=== PATIENT | male | born 1980 | race Caucasian/White ===

== ENCOUNTER 2017-06-03 07:39 | Emergency (ER) | payer MEDICAID ==
[~2017-06-03] VITALS: Ht 172.7 cm; Wt 100.0 kg
[~2017-06-03 07:39] MED LIST: CEPHALEXIN500 M2 PO; ED FLEXERI6 TAB/BOTT PO; ED NORCO 56 UDTAB/BO PO; FLEXERIL10 MG PO; GOOD NEIGHBOR200 M3 PO; IBU600 MG PO; NORCO 325 MG-51 TAB PO; PERCOCET 325 MG1 TA4 PO; TORADOL 10MG TA10 MG PO
[2017-06-03 08:10] LABS: EOS # 0.1 (0.04-0.40); EOS % 1.8 % (0.0-4.0); HEMATOCRIT 43.9 % (42.0-52.0); HEMOGLOBIN 15.4 g/dL (13.5-18.0); LYMPH# 1.3 (1.50-4.00); MEAN CELL VOLUME 85 fl (78-100); MEAN CORPUSCULAR HEMOGLOBIN 30 pg (27-31); MEAN CORPUSCULAR HGB CONC 35 g/dL (33-37); MEAN PLATELET VOLUME 9.3 fl (7.4-10.4); MONO # 0.7 (0.20-0.80); PLATELET COUNT 174 K/mm3 (130-400); RED BLOOD COUNT 5.17 M/mm3 (4.20-5.60); WHITE BLOOD COUNT 6.1 K/mm3 (4.8-10.8)
[2017-06-03 08:20] LABS: URINE APPEARANCE CLEAR; URINE BILIRUBIN NEGATIVE (NEGATIVE); URINE BLOOD 50 ery/uL (NEGATIVE); URINE COLOR YELLOW; URINE GLUCOSE NEGATIVE (NEGATIVE); URINE KETONE NEGATIVE (NEGATIVE); URINE LEUKOCYTE ESTERASE NEGATIVE (NEGATIVE); URINE NITRATE NEGATIVE (NEGATIVE); URINE PROTEIN(semi-quant) NEGATIVE (NEGATIVE); URINE UROBILINOGEN NORMAL (NORMAL)
[2017-06-03 08:20] LABS: ALBUMIN 3.7 g/dL (3.5-5.0); BUN/CREATININE RATIO 9.9 (6.0-26.0); CALCIUM 9.2 mg/dL (8.4-10.2); POTASSIUM 4.1 mmol/L (3.6-5.0); TOTAL BILIRUBIN 0.5 mg/dL (0.2-1.3); TOTAL PROTEIN 6.5 g/dL (6.3-8.2)
[2017-06-03] MEDS ORDERED: KETOROLAC10 MG PO (11:28)
[2017-06-03] MEDS ORDERED: FLOMAX0.4 MG PO (11:28)
[2017-06-03] MEDS ORDERED: PERCOCET 325 MG1 TA2 PO (11:28)
[2017-06-03 11:36] VITALS: BP 91/43
== END 2017-06-03 11:40 | disposition home or self-care (01) ==
LOC: ED 07:39
PROVIDERS: Physician Assistant
DX: N13.2 Hydronephrosis with renal and ureteral calculous obstruction (principal); Z87.442 Personal history of urinary calculi
CPT/HCPCS: J1885; J2405; J3010; Q9967

== ENCOUNTER → 2018-09-24 | Outpatient (CLI) | payer MEDICAID ==
[~2018-09-24] MED LIST changes: +FLOMAX0.4 MG PO; +KETOROLAC10 MG PO; +PERCOCET 325 MG1 TA2 PO
[2018-09-24 09:05] LABS: EOS # 0.1 (0.04-0.40); EOS % 1.2 % (0.0-4.0); HEMATOCRIT 44.2 % (42.0-52.0); HEMOGLOBIN 15.1 g/dL (13.5-18.0); LYMPH# 1.1 (1.50-4.00); MEAN CELL VOLUME 84 fl (78-100); MEAN CORPUSCULAR HEMOGLOBIN 29 pg (27-31); MEAN CORPUSCULAR HGB CONC 34 g/dL (33-37); MEAN PLATELET VOLUME 9.4 fl (7.4-10.4); MONO # 0.5 (0.20-0.80); NEU # 3.5 (1.40-6.50); PLATELET COUNT 197 K/mm3 (130-400); RED BLOOD COUNT 5.24 M/mm3 (4.20-5.60); WHITE BLOOD COUNT 5.1 K/mm3 (4.8-10.8)
[2018-09-24 09:34] LABS: ALBUMIN 4.4 g/dL (3.5-5.0); CALCIUM 8.9 mg/dL (8.4-10.2); POTASSIUM 4.1 mmol/L (3.6-5.0); TOTAL BILIRUBIN 0.4 mg/dL (0.2-1.3); TOTAL PROTEIN 7.3 g/dL (6.3-8.2)
== END ==
LOC: LAB 08:46
PROVIDERS: Physician Assistant
DX: R10.9 Unspecified abdominal pain (principal)

== ENCOUNTER 2018-10-30 16:00 | Outpatient (RCR) | payer MEDICAID | END 2018-10-30 16:30 | disposition home or self-care (01) | LOC: PT 16:00 | DX: M54.41 Lumbago with sciatica, right side (principal); G89.29 Other chronic pain; N20.0 Calculus of kidney; K21.9 Gastro-esophageal reflux disease without esophagitis ==

== ENCOUNTER → 2019-02-17 | Outpatient (CLI) | payer MEDICAID ==
[2019-02-17 08:59] LABS: EOS # 0.1 (0.04-0.40); EOS % 1.3 % (0.0-4.0); HEMATOCRIT 44.1 % (42.0-52.0); HEMOGLOBIN 15.1 g/dL (13.5-18.0); LYMPH# 1.4 (1.50-4.00); MEAN CELL VOLUME 86 fl (78-100); MEAN CORPUSCULAR HEMOGLOBIN 29 pg (27-31); MEAN CORPUSCULAR HGB CONC 34 g/dL (33-37); MEAN PLATELET VOLUME 9.2 fl (7.4-10.4); MONO # 0.5 (0.20-0.80); PLATELET COUNT 193 K/mm3 (130-400); RED BLOOD COUNT 5.15 M/mm3 (4.20-5.60); RED CELL DISTRIBUTION WIDTH 13.3 % (11.5-14.5); WHITE BLOOD COUNT 5.9 K/mm3 (4.8-10.8)
[2019-02-17 09:06] LABS: POTASSIUM 3.5 mmol/L (3.5-5.1)
[2019-02-17 09:07] LABS: ALBUMIN 3.9 g/dL (3.5-5.0)
[2019-02-17 09:08] LABS: CALCIUM 8.8 mg/dL (8.3-10.5)
[2019-02-17 09:09] LABS: TOTAL PROTEIN 6.7 g/dL (6.4-8.3)
[2019-02-17 09:11] LABS: TOTAL BILIRUBIN 0.5 mg/dL (0.2-1.2)
== END ==
LOC: LAB 08:48
PROVIDERS: Physician Assistant
DX: N52.9 Male erectile dysfunction, unspecified (principal); K21.9 Gastro-esophageal reflux disease without esophagitis; R61 Generalized hyperhidrosis; R53.83 Other fatigue; R68.89 Other general symptoms and signs; Z83.3 Family history of diabetes mellitus

== ENCOUNTER → 2019-09-08 | Outpatient (CLI) | payer MEDICAID | LOC: RAD 08:19 | DX: M50.321 Other cervical disc degeneration at C4-C5 level (principal); M50.322 Other cervical disc degeneration at C5-C6 level ==

== ENCOUNTER 2019-09-28 08:30 | Outpatient (RCR) | payer MEDICAID | END 2019-09-28 09:00 | disposition still patient (30) | LOC: PT 08:30 | DX: M54.2 Cervicalgia (principal) ==

== ENCOUNTER → 2020-09-12 | Outpatient (CLI) | payer MEDICAID | LOC: RAD 08:50 | DX: M47.816 Spondylosis without myelopathy or radiculopathy, lumbar region (principal); S22.060A Wedge compression fracture of T7-T8 vertebra, initial encounter for closed fracture ==

== ENCOUNTER → 2020-09-25 | Outpatient (CLI) | payer MEDICAID ==
[2020-09-25 06:42] LABS: EOS # 0.1 (0.04-0.40); EOS % 0.8 % (0.0-4.0); HEMATOCRIT 48.6 % (42.0-52.0); HEMOGLOBIN 16.3 g/dL (13.5-18.0); LYMPH# 1.1 (1.50-4.00); MEAN CELL VOLUME 86 fl (78-100); MEAN CORPUSCULAR HEMOGLOBIN 29 pg (27-31); MEAN CORPUSCULAR HGB CONC 34 g/dL (33-37); MEAN PLATELET VOLUME 9.3 fl (7.4-10.4); MONO # 0.4 (0.20-0.80); NEU # 6.3 (1.40-6.50); PLATELET COUNT 228 K/mm3 (130-400); RED BLOOD COUNT 5.66 M/mm3 (4.20-5.60); RED CELL DISTRIBUTION WIDTH 13.2 % (11.5-14.5); WHITE BLOOD COUNT 7.9 K/mm3 (4.8-10.8)
[2020-09-25 07:11] LABS: ALBUMIN 4.5 g/dL (3.5-5.0); POTASSIUM 4.7 mmol/L (3.5-5.1)
[2020-09-25 07:13] LABS: CALCIUM 9.2 mg/dL (8.3-10.5)
[2020-09-25 07:14] LABS: TOTAL PROTEIN 7.7 g/dL (6.4-8.3)
[2020-09-25 07:16] LABS: TOTAL BILIRUBIN 0.3 mg/dL (0.2-1.2)
== END ==
LOC: LAB 06:21
PROVIDERS: Physician Assistant
DX: E78.5 Hyperlipidemia, unspecified (principal)

== ENCOUNTER → 2020-09-28 | Outpatient (CLI) | payer MEDICAID | LOC: LAB 08:59 | DX: Z13.29 Encounter for screening for other suspected endocrine disorder (principal); Z12.5 Encounter for screening for malignant neoplasm of prostate; R53.83 Other fatigue; Z83.49 Family history of other endocrine, nutritional and metabolic diseases; R73.9 Hyperglycemia, unspecified ==

== ENCOUNTER → 2021-11-06 | Outpatient (CLI) | payer MEDICAID | LOC: LAB 11:17 | DX: Z20.822 Contact with and (suspected) exposure to COVID-19 (principal) ==

== ENCOUNTER 2022-02-15 06:00 | Emergency (ER) | payer MEDICAID ==
[~2022-02-15] VITALS: Ht 170.2 cm; Wt 99.9 kg
[2022-02-15 06:04] VITALS: BP 128/83
[2022-02-15] MEDS ORDERED: CLONIDINE HYDR0.2 MG PO (06:13)
[2022-02-15] MEDS ORDERED: RITALIN10 M1 (06:14)
[2022-02-15] MEDS ORDERED: ZOLOFT25 M1 (06:14)
[2022-02-15] MEDS ORDERED: WELLBUTRIN (06:14)
[2022-02-15 06:44] LABS: BASO # 0.01 K/mm3 (0.02-0.10); EOS % 1.7 % (0.0-4.0); HEMATOCRIT 41.2 % (42.0-52.0); LYMPH# 1.37 K/mm3 (1.50-4.00); MEAN CELL VOLUME 87 fl (78-100); MEAN CORPUSCULAR HEMOGLOBIN 30 pg (27-31); MEAN CORPUSCULAR HGB CONC 34 g/dL (33-37); MEAN PLATELET VOLUME 9.2 fl (7.4-10.4); MONO # 0.59 K/mm3 (0.20-0.80); PLATELET COUNT 157 K/mm3 (130-400); RED BLOOD COUNT 4.75 M/mm3 (4.20-5.60); RED CELL DISTRIBUTION WIDTH 12.5 % (11.5-14.5)
[2022-02-15 06:52] LABS: ALBUMIN 4.1 g/dL (3.5-5.0); POTASSIUM 4.2 mmol/L (3.5-5.1); SODIUM 138 mmol/L (136-145)
[2022-02-15 06:54] LABS: CALCIUM 8.9 mg/dL (8.3-10.5)
[2022-02-15 06:55] LABS: GLUCOSE 111 mg/dL (75-110); TOTAL PROTEIN 6.8 g/dL (6.4-8.3)
[2022-02-15 06:56] LABS: CARBON DIOXIDE 24 mmol/L (22-29)
[2022-02-15 06:57] LABS: TOTAL BILIRUBIN 0.3 mg/dL (0.2-1.2)
[2022-02-15 07:00] LABS: AST-SGOT 21 U/L (5-34)
[2022-02-15 07:01] LABS: ALT/SGPT 13 U/L (0-55)
[2022-02-15 07:02] LABS: LIPASE 22 U/L (8-78)
[2022-02-15 07:08] LABS: TROPONIN-I < 0.030 ng/mL (<0.030)
[2022-02-15 08:59] LABS: URINE APPEARANCE CLOUDY; URINE COLOR YELLOW
[2022-02-15 09:00] LABS: URINE BILIRUBIN NEGATIVE (NEGATIVE); URINE BLOOD 250 ery/uL (NEGATIVE); URINE GLUCOSE NEGATIVE (NEGATIVE); URINE KETONE NEGATIVE (NEGATIVE); URINE LEUKOCYTE ESTERASE NEGATIVE (NEGATIVE); URINE NITRATE NEGATIVE (NEGATIVE); URINE PROTEIN(semi-quant) TRACE (NEGATIVE); URINE UROBILINOGEN NORMAL (NORMAL)
[2022-02-15 09:01] LABS: URINE MUCUS PRESENT (NOT PRESENT)
[2022-02-15] MEDS ORDERED: NORCO 325 MG-51 TA1 PO (10:12)
[2022-02-15] MEDS ORDERED: ONDANSETRON HYDR4 MG PO (10:12)
[2022-02-15] MEDS ORDERED: FLOMAX0.4 MG PO (10:12)
[2022-02-16] MEDS ORDERED: PERCOCET 325 MG1 TA2 PO (12:50)
== END 2022-02-15 10:15 | disposition home or self-care (01) ==
LOC: ED 06:00
PROVIDERS: Family Medicine
DX: N13.2 Hydronephrosis with renal and ureteral calculous obstruction (principal); E66.9 Obesity, unspecified; Z68.34 Body mass index [BMI] 34.0-34.9, adult
CPT/HCPCS: J1885; J2405; J7030; Q9967

== ENCOUNTER 2022-02-16 10:31 | Emergency (ER) | payer MEDICAID ==
[~2022-02-16 10:31] MED LIST changes: +CLONIDINE HYDR0.2 MG PO; +NORCO 325 MG-51 TA1 PO; +ONDANSETRON HYDR4 MG PO; +RITALIN10 M1; +WELLBUTRIN; +ZOLOFT25 M1
[2022-02-16] MEDS ORDERED: PERCOCET 325 MG1 TA2 PO (12:50)
[2022-02-16 12:59] VITALS: BP 144/97
== END 2022-02-16 13:01 | disposition home or self-care (01) ==
LOC: ED 10:31
DX: N20.2 Calculus of kidney with calculus of ureter (principal)
CPT/HCPCS: J1885

== ENCOUNTER → 2022-04-10 | Outpatient (CLI) | payer MEDICAID | LOC: LAB 08:50 | DX: U07.1 COVID-19 (principal) ==

== ENCOUNTER → 2022-07-09 | Outpatient (CLI) | payer MEDICAID ==
[2022-07-09 08:58] LABS: POTASSIUM 4.2 mmol/L (3.5-5.1)
[2022-07-09 08:59] LABS: ALBUMIN 4.1 g/dL (3.5-5.0)
[2022-07-09 09:00] LABS: CALCIUM 9.6 mg/dL (8.3-10.5)
[2022-07-09 09:01] LABS: TOTAL PROTEIN 6.9 g/dL (6.4-8.3)
[2022-07-09 09:03] LABS: TOTAL BILIRUBIN 0.6 mg/dL (0.2-1.2)
[2022-07-09 09:39] LABS: BASO # 0.02 K/mm3 (0.02-0.10); EOS # 0.08 K/mm3 (0.04-0.40); EOS % 1.5 % (0.0-4.0); HEMATOCRIT 44.4 % (42.0-52.0); HEMOGLOBIN 14.6 g/dL (13.5-18.0); MEAN CELL VOLUME 90 fl (78-100); MEAN CORPUSCULAR HEMOGLOBIN 30 pg (27-31); MEAN CORPUSCULAR HGB CONC 33 g/dL (33-37); MONO # 0.54 K/mm3 (0.20-0.80); NEU # 3.35 K/mm3 (1.40-6.50); PLATELET COUNT 180 K/mm3 (130-400); RED BLOOD COUNT 4.95 M/mm3 (4.20-5.60); RED CELL DISTRIBUTION WIDTH 12.8 % (11.5-14.5); WHITE BLOOD COUNT 5.3 K/mm3 (4.8-10.8)
== END ==
LOC: LAB 08:39
PROVIDERS: Physician Assistant
DX: Z12.5 Encounter for screening for malignant neoplasm of prostate (principal); Z13.29 Encounter for screening for other suspected endocrine disorder; E78.5 Hyperlipidemia, unspecified; R73.9 Hyperglycemia, unspecified

== ENCOUNTER 2023-06-18 08:00 | Outpatient (RCR) | payer MEDICAID ==
[~2023-06-18 08:00] MED LIST changes: +CYCLOBENZAPRINE10 M1 PO
== END 2023-07-17 16:15 | disposition home or self-care (01) ==
LOC: PT 08:00
DX: M51.26 Other intervertebral disc displacement, lumbar region (principal)

== ENCOUNTER 2024-04-13 08:54 | Outpatient (RCR) | payer OTHER | END 2024-04-17 | disposition home or self-care (01) | LOC: PT | DX: M47.26 Other spondylosis with radiculopathy, lumbar region (principal) ==

== ENCOUNTER 2024-04-20 08:41 | Outpatient (RCR) | payer OTHER | END 2024-05-12 10:16 | disposition home or self-care (01) | LOC: PT 08:41 | DX: M47.27 Other spondylosis with radiculopathy, lumbosacral region (principal) ==

== ENCOUNTER → 2024-09-20 | Outpatient (CLI) | payer SELFPAY ==
[~2024-09-20] MED LIST changes: +AMOXICILLIN AND1 TA2 PO; +DOCUSATE SOD100 MG PO; +LEADER NIC21 MG/24 H TD; +MELOXICAM15 MG PO; +PRILOSEC 20MG20 MG PO
== END ==
LOC: RAD 15:28
DX: R05.9 Cough, unspecified (principal)